=== PATIENT | female | born 1950 | race Caucasian/White ===

== ENCOUNTER → 2016-08-27 | Outpatient (CLI) | payer OTHER ==
[~2016-08-27] MED LIST: ATOR-24 PO; CHOL100010 PO; COEN100C11 PO; MELO7.5T6 PO; METF1TAB53 PO; MULT-506 PO
[2016-08-28 07:35] LABS: ESTIMATED AVERAGE GLUCOSE 137 mg/dl; HA1C FLAG Normal (Normal)
--- NOTE | 2016-09-02 10:54 | CODING QUERY MEDICAL NECESSITY ---
CQSUPPORTING DIAGNOSIS NEEDED A supporting diagnosis is required for the test/procedure performed on this patient in order for us to be reimbursed by the patient's insurance. Please provide a supporting diagnosis for the following test/procedure listed below next to the test name along with your signature. *If there is no additional diagnosis for this patient that would support the following test/procedure please document that below next to the test/procedure. Test(s)/Procedure(s) that require a supporting diagnosis: DOS 08/27/16 VITAMIN D TEST Provider Signature: Date: Thank you Monae Juarez Health Information Management Once completed, please kindly fax back to [phone] For questions please call [phone]
== END | disposition home or self-care (01) ==
LOC: C.LABPVFM 17:46
PROVIDERS: ATTEND Nurse Practitioner Adult Health
DX: E11.9 Type 2 diabetes mellitus without complications (principal); M79.643 Pain in unspecified hand; M15.4 Erosive (osteo)arthritis

== ENCOUNTER → 2016-11-30 | Outpatient (CLI) | payer OTHER ==
[2016-11-30 13:23] LABS: BLOOD UREA NITROGEN 14 mg/dl (7-18); BUN/CREATININE RATIO 18.9 (10-20); CARBON DIOXIDE 29 mmol/L (21-32); CHLORIDE 107 mmol/L (98-107); CHOLESTEROL 155 mg/dl (0-200); CREATININE 0.72 mg/dl (0.60-1.20); GLUCOSE 132 mg/dl (70-99); POTASSIUM 4.1 mmol/L (3.5-5.1); SODIUM 141 mmol/L (136-145); TRIGLYCERIDES 131 mg/dl (0-150); VERY LOW DENSITY LIPOPROT CALC 26 mg/dl
[2016-11-30 13:26] LABS: CHOLESTEROL/HDL RATIO 2.5; HDL CHOLESTEROL 62 mg/dl; LDL CHOLESTEROL CALCULATED 67 mg/dl
== END | disposition home or self-care (01) ==
LOC: C.LABPVFM 07:52
PROVIDERS: ATTEND Nurse Practitioner
DX: I10 Essential (primary) hypertension (principal); E11.9 Type 2 diabetes mellitus without complications; Z79.1 Long term (current) use of non-steroidal anti-inflammatories (NSAID); E78.5 Hyperlipidemia, unspecified

== ENCOUNTER → 2016-12-21 | Outpatient (CLI) | payer OTHER ==
--- NOTE | 2016-12-21 09:56 | DIAGNOSTIC IMAGING REPORT ---
ABDOMINAL ULTRASOUND, RIGHT UPPER QUADRANT HISTORY: Right upper quadrant abdominal pain. COMPARISON: Abdominal ultrasound November 07, 2013. FINDINGS: Liver is sonographically normal. No gallstones are identified. Multiple small nonmobile echogenic structures adherent to the gallbladder wall are unchanged since prior exam of November 07, 2013 and represent polyps. These measure up to 3 mm. There is no gallbladder wall thickening. The pancreatic body is normal. The head and tail are partially obscured. There is no biliary ductal dilatation. No right hydronephrosis is present. IMPRESSION: 1. No gallstones or biliary ductal dilatation. 2. No change in multiple small gallbladder polyps since ultrasound of November 07, 2013. Electronically signed by: Luiz Lira M.D. 12/21/2016 9:55 AM Dictated Date/Time: 12/21/2016 9:54 AM
== END | disposition home or self-care (01) ==
LOC: C.ULTR 09:26
PROVIDERS: ATTEND Nurse Practitioner
DX: R10.11 Right upper quadrant pain (principal)

== ENCOUNTER → 2017-01-19 | Outpatient (CLI) | payer OTHER | END | disposition home or self-care (01) | LOC: C.LABPVFM 07:02 | PROVIDERS: ATTEND Nurse Practitioner | DX: E11.9 Type 2 diabetes mellitus without complications (principal) ==

== ENCOUNTER → 2017-03-07 | Outpatient (CLI) | payer OTHER ==
--- NOTE | 2017-03-08 14:32 | MAMMOGRAPHY REPORT ---
BILATERAL DIGITAL SCREENING MAMMOGRAM TOMOSYNTHESIS WITH CAD: 03/07/2017 CLINICAL HISTORY: Routine screening. Patient has no complaints. TECHNIQUE: Breast tomosynthesis in addition to standard 2D mammography was performed. Current study was also evaluated with a Computer Aided Detection (CAD) system. COMPARISON: Comparison is made to exams dated: 03/05/2016 mammogram, 03/08/2014 mammogram, 5 mammogram, 03/08/2014 ultrasound, 02/28/2014 mammogram - [facility], and 02/28/20 13 mammogram. BREAST COMPOSITION: The tissue of both breasts is heterogeneously dense, which may obscure small mas ses. FINDINGS: No suspicious masses, calcifications, or areas of architectural distortion are noted in ei ther breast. There has been no significant interval change compared to prior exams. Scattered bilater al benign-appearing calcifications are not significantly changed. IMPRESSION: ACR BI-RADS CATEGORY 2: BENIGN There is no mammographic evidence of malignancy. A 1 year screening mammogram is recommended. The pa tient will receive written notification of the results. Approximately 10% of breast cancers are not detected with mammography. A negative mammographic report should not delay biopsy if a clinically suggestive mass is present. Paris Boles M.D. /:03/07/2017 14:47:02 Crab Fisher: Sarah German M, [facility] letter sent: Normal 1/2 BI-RADS Code: ACR BI-RADS Category 2: Benign
== END | disposition home or self-care (01) ==
LOC: C.MAMM 13:19
PROVIDERS: ATTEND Obstetrics & Gynecology
DX: Z12.31 Encounter for screening mammogram for malignant neoplasm of breast (principal)

== ENCOUNTER → 2017-05-24 | Outpatient (CLI) | payer OTHER ==
--- NOTE | 2017-05-24 16:34 | DIAGNOSTIC IMAGING REPORT ---
KUB CLINICAL HISTORY: CONSTIPATION COMPARISON STUDY: No previous studies for comparison. FINDINGS: There is no pathologic bowel dilatation. There are no transition zones indicate bowel obstruction. There is mild fecal retention. There is a 5 cm right pelvic calcification likely are presenting a calcified uterine fibroid. Additional pelvic calcifications likely represent phleboliths. Degenerative changes are present within the lumbar spine. IMPRESSION: 1. Mild fecal retention 2. No evidence of pathologic bowel dilatation Electronically signed by: Jose Luis Armenta M.D. 05/24/2017 4:32 PM Dictated Date/Time: 05/24/2017 4:32 PM
== END | disposition home or self-care (01) ==
LOC: C.RADPV 16:20
PROVIDERS: ATTEND Nurse Practitioner
DX: K59.00 Constipation, unspecified (principal)

== ENCOUNTER 2017-06-06 13:59 | Emergency (ER) | payer OTHER ==
[~2017-06-06] VITALS: Ht 157.5 cm; Wt 57.0 kg
[2017-06-06 14:02] VITALS: TEMP 36.8; Ht 157.5 cm; Wt 57.0 kg
[2017-06-06] MEDS ORDERED: CALC-20 PO (14:31)
[2017-06-06] MEDS ORDERED: BIOT1TAB5 PO (14:31)
[2017-06-06] MEDS ORDERED: ASPI81TA28 PO (14:31)
[2017-06-06] MEDS ORDERED: CHOL100010 PO (14:31)
[2017-06-06] MEDS ORDERED: SIMV40TA2 PO (14:31)
--- NOTE | 2017-06-06 15:00 | DIAGNOSTIC IMAGING REPORT ---
LEFT WRIST 4 VIEWS CLINICAL HISTORY: Fall with left wrist pain. FINDINGS: 4 views of the left wrist are correlated with radiographs of the left hand dated 12/05/2015. The skeletal structures are osteopenic. No fracture is identified. Soft tissue edema is present around the wrist. There is advanced osteoarthritic change at the first carpometacarpal articulation with bony sclerosis, overgrowth, and subluxation. Advanced narrowing and sclerosis is also seen at the radiocarpal articulation. Milder arthritic change is seen throughout the intercarpal joints. IMPRESSION: 1. Soft tissue swelling with no radiographic evidence of acute fracture. If there is strong clinical concern for occult fracture consider short-term radiographic follow-up. 2. Osteopenia and arthritic change as above, greatest at the first carpometacarpal joint. Electronically signed by: Jacques Dutta M.D. 06/06/2017 2:58 PM Dictated Date/Time: 06/06/2017 2:57 PM
--- NOTE | 2017-06-06 15:17 | EMERGENCY ROOM VISIT NOTE ---
ED Visit Note First contact with patient: 14:08 CHIEF COMPLAINT: Left wrist injury 30 minutes ago Patient is a [id number] 67-year-old white female who presents emergency department for evaluation of left wrist pain. She tripped over a rug and fell, landing on her outstretched hands and wrists bilaterally, injuring the left wrist. She complains of pain in the volar aspect of the wrist, that is worse with movement. She describes it as an achy, 4/10 pain. She has some slight tingling in her left fourth and fifth fingers. She had discomfort with certain movements like trying to her on her seatbelt. She did not try taking any medications, nor perform any interventions prior to coming to the emergency department. 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 She could not tolerate meloxicam and is therefore been using [id number] anti- inflammatory medicines for symptomatic relief. She denies any other injuries related to the fall. REVIEW OF SYSTEMS: Review of systems as per HPI. All other systems reviewed were negative. At least 6 systems reviewed. PMH: Electronic medical records are reviewed and summarized as above/below. See Problem List. SOCIAL HISTORY: Patient lives at home with her . Non-smoker. PHYSICAL EXAM: Vital Signs: Reviewed Nurse's notes. MENTAL STATUS: Pleasant 67- year-old white female who is awake and alert and in no acute distress. MUSCULOSKELETAL: Examination of the left wrist does not note any obvious deformity. Skin is intact. She has tenderness over the dorsal aspect of the wrist over the distal radius, and over the volar aspect of the wrist, discomfort is exacerbated by range of motion, which is essentially full. She has discomfort with extension, flexion and radial and ulnar deviation. There is no anatomic snuffbox tenderness. Elbow is nontender with no pain over the radial head and elbow range of motion is full. The left upper extremity is neurovascularly intact. EMERGENCY DEPARTMENT COURSE: X-rays of the left wrist were obtained, noting moderate arthritic changes, no evidence for acute fracture. X-ray findings were reviewed with the patient. She does have a wrist lacer that she can use for support and partial immobilization. Supportive care measures were discussed. The patient was reassured that she can slowly return to normal activity as her pain allows. If her symptoms do not appear to be improving, she was encouraged to follow-up with orthopedics for further care and evaluation of her injury. Differential diagnoses included fracture, sprain, dislocation, contusion, among others. Medication reconciliation: I attest that I have personally reviewed the patient' s current medication list. Blood pressure screening: Patient was found to have a slightly elevated blood pressure due to circumstances. I do not believe that the patient requires hypertension monitoring. LEFT WRIST 4 VIEWS CLINICAL HISTORY: Fall with left wrist pain. FINDINGS: 4 views of the left wrist are correlated with radiographs of the left hand dated 12/05/2015. The skeletal structures are osteopenic. No fracture is identified. Soft tissue edema is present around the wrist. There is advanced osteoarthritic change at the first carpometacarpal articulation with bony sclerosis, overgrowth, and subluxation. Advanced narrowing and sclerosis is also seen at the radiocarpal articulation. Milder arthritic change is seen throughout the intercarpal joints. IMPRESSION: 1. Soft tissue swelling with no radiographic evidence of acute fracture. If there is strong clinical concern for occult fracture consider short-term radiographic follow-up. 2. Osteopenia and arthritic change as above, greatest at the first carpometacarpal joint. Problem List Medical Problems: (1) Diabetes Status: Chronic (2) Hyperlipidemia, Unspecified Status: Chronic (3) Osteoarthritis Status: Chronic Surgical Problems: (1) Status post bunionectomy Status: Resolved Current/Historical Medications Scheduled Aspirin (Aspirin Ec), 81 MG PO DAILY Biotin (Biotin), 1,000 MCG PO DAILY Calcium Carbonate-Vitamin D (Calcium 600 + D), 2 TABS PO DAILY Cholecalciferol (Vitamin D), 1,000 UNITS PO DAILY Coenzyme Q10 (Ubidecarenone) (Coq-10), 1 CAP PO QAM Metformin Hcl (Glucophage Ext Rel), 1,000 MG PO BID Simvastatin (Zocor), 40 MG PO QPM Allergies Coded Allergies: NO KNOWN DRUG ALLERGIES (Verified Allergy, Unknown, ., 06/06/17) Vital Signs Date Time Temp Pulse Resp B/P (MAP) Pulse Ox O2 Delivery O2 Flow Rate FiO2 06/06/17 15:32 78 19 157/87 97 06/06/17 14:02 36.8 87 16 168/81 96 Departure Information Impression Primary Impression: Left wrist sprain Referrals Lenore Barker C.R.NPaulP (PCP) Patient Instructions My [facility] Additional Instructions Ibuprofen(Motrin, Advil) may be used for fever or pain. Use 600mg every six hours as needed. Take with food. Avoid using more than 2400mg in a 24 hour period. Do not use 2400mg per day for more than three consecutive days without physician direction. Prolonged inappropriate use can lead to stomach upset or ulcers. This medication can be taken if you need to drive, work, or perform activities which may be dangerous when taking narcotic pain medication. (AND/OR) Acetaminophen(Tylenol) may be used for fever or pain. Use 1000mg every six hours as needed. Avoid using more than 3000mg in a 24 hour period. This medication can be taken if you need to drive, work, or perform activities which may be dangerous when taking narcotic pain medication. Ice compresses for 20 minutes at a time four times daily for 2-3 days. Use your wrist splint as instructed. Rest and elevate your injury. Continue current medications. Return to the ER immediately for any numbness, tingling, severe pain, extreme swelling in the extremity or as needed. Followup with your family doctor or orthopedic surgery if no improvement in 5-7 days.
[2017-06-06 15:32] VITALS: BP 157/87; PULSE 78; O2SAT 97
== END 2017-06-06 15:34 | disposition home or self-care (01) ==
LOC: C.EDB 14:01 → C.EDD 15:34
DX: S63.502A Unspecified sprain of left wrist, initial encounter (principal); W19.XXXA Unspecified fall, initial encounter; E11.9 Type 2 diabetes mellitus without complications; E78.5 Hyperlipidemia, unspecified; M19.90 Unspecified osteoarthritis, unspecified site; Z79.82 Long term (current) use of aspirin

== ENCOUNTER → 2017-08-29 | Outpatient (CLI) | payer OTHER ==
[~2017-08-29] MED LIST changes: +ASPI81TA28 PO; -ATOR-24 PO; +BIOT1TAB5 PO; +CALC-20 PO; -MELO7.5T6 PO; -MULT-506 PO; +SIMV40TA2 PO
== END | disposition home or self-care (01) ==
LOC: C.PAPS 11:30
PROVIDERS: ATTEND Obstetrics & Gynecology
DX: N84.0 Polyp of corpus uteri (principal); R10.2 Pelvic and perineal pain

== ENCOUNTER → 2017-11-23 | Outpatient (CLI) | payer OTHER ==
[2017-11-23 13:12] LABS: HEMOGLOBIN A1C 6.5 % (4.5-5.6)
[2017-11-23 13:33] LABS: BLOOD UREA NITROGEN 15 mg/dl (7-18); CALCIUM 9.4 mg/dl (8.5-10.1); CARBON DIOXIDE 28 mmol/L (21-32); CHOLESTEROL 165 mg/dl (0-200); CREATININE 0.61 mg/dl (0.60-1.20); GLUCOSE 132 mg/dl (70-99); LDL CHOLESTEROL CALCULATED 87 mg/dl; SODIUM 140 mmol/L (136-145)
== END | disposition home or self-care (01) ==
LOC: C.LABPVFM 09:23
PROVIDERS: ATTEND Nurse Practitioner
DX: E11.9 Type 2 diabetes mellitus without complications (principal); E78.5 Hyperlipidemia, unspecified; I10 Essential (primary) hypertension